=== PATIENT | male | born 1960 | race Caucasian/White ===

== ENCOUNTER 2017-07-07 15:35 | Inpatient (IN) ==
[2017-07-07] MEDS ORDERED: 0.9 % Sodium Chloride 1,000 ML IVC ONE ×2 (15:51→16:45)
[2017-07-07] MEDS ORDERED: Aspirin 325 MG TABLET PO ONE (15:51)
--- NOTE | 2017-07-07 16:04 | Emergency Department Note ---
Disposition Clinical Impression: Atrial fibrillation with RVR, Pre-syncope, Acute kidney injury, Chest tightness or pressure Disposition: Admitted As Inpatient Condition: Fair Time of Disposition: 17:51 Arrhythmia/Palpitations HPI - General Chief Complaint: ED Arrhythmia/Palpitations Stated Complaint: SOB Time Seen by Provider: 07/07/17 15:50 Source: EMS Limitations: no limitations Nursing Notes Reviewed: Yes Vital Signs Reviewed: Yes - History of Present Illness HPI Narrative: 57-year-old male complains of chest pain, shortness of breath, and dyspnea on exertion. Patient states he has been feeling ill secondary to having the flu for the past week. Patient states yesterday symptoms started to worsen with episodes of near syncope which continued to early this morning. Today patient complains of severe dyspnea on exertion while going upstairs and had to stop to catch his breath. The first time this happened he was trying to go up 2 flights of stairs and became short of breath after 1 flight. He caught his breath and tried to make it up the second flight of stairs, but his symptoms worsened so he stopped and walked back down stairs and called for an ambulance. - Related Data Home Medications Medication Instructions Recorded Confirmed No Known Home Drugs 07/07/17 07/07/17 Allergies Allergy/AdvReac Type Severity Reaction Status Date / Time No Known Allergies Allergy Verified 07/07/17 16:35 All systems ED: reviewed and negative except as stated. Review of Systems: As Per HPI Constitutional: Denies: fever, chills, weakness Eyes: Reports: vision change (Blurry vision) Cardiovascular: Reports: chest pain, palpitations Respiratory: Reports: cough, dyspnea. Denies: wheezes Gastrointestinal: Denies: abdominal pain, nausea, vomiting, diarrhea Genitourinary: Denies: urgency, dysuria Musculoskeletal: Denies: back pain Past Medical History - Past Medical History Attestation: Yes The following information was validated with the patient. Source: patient, nursing notes reviewed Medical history: Reports: atrial fibrillation Psychiatric history: Reports: anxiety - Social History Smoking Status: Never smoker Smokeless Tobacco Status: No Alcohol use: Reports: occasionally Drug use: Reports: none Physical Exam Vital Signs Temperature 98.9 F 07/07/17 15:36 Pulse Rate 160 07/07/17 15:36 Respiratory Rate 22 07/07/17 15:36 Blood Pressure 123/92 07/07/17 15:36 O2 Sat by Pulse Oximetry 97 07/07/17 15:36 Temperature 98.9 F 07/07/17 15:36 Pulse Rate 164 07/07/17 16:06 Respiratory Rate 16 07/07/17 16:06 Blood Pressure 107/76 07/07/17 16:06 O2 Sat by Pulse Oximetry 99 07/07/17 16:06 Oxygen Delivery Oxygen Delivery Nasal Cannula 57-year-old male who is alert and oriented 3 and appears to be in some distress secondary to chest discomfort. Patient is nontoxic but patient is slightly diaphoretic. Patient heart rate shows pulse of 160. EKG shows A. fib RVR at 169 minute patient has a blood pressure 123/92 and is tachypneic at 22 breaths per minute. - General Limitations: no limitations General appearance: alert, in no apparent distress - Head Head exam: atraumatic, normocephalic, normal inspection - Eye Eye exam: Present: normal appearance, PERRL, EOMI - ENT ENT exam: normal exam, normal oropharynx, mucous membranes moist - Neck Neck exam: Present: normal inspection, full ROM, trachea midline - Chest Chest inspection: Present: normal inspection, symmetric chest wall rise - Respiratory Respiratory exam: Present: normal lung sounds bilaterally - Cardiovascular Cardiovascular exam: Present: tachycardia, irregular rhythm (Irregularly irregular heart rhythm upon auscultation with corresponding palpation of radial pulse) - Abdominal Exam Abdominal exam: Present: soft, Non-Tender. Absent: tenderness, distention, guarding, rebound, rigidity - Extremities Exam Extremities exam: Present: normal inspection, full ROM. Absent: tenderness, pedal edema - Back Exam Back exam: Present: normal inspection, full ROM. Absent: tenderness, CVA tenderness (R), CVA tenderness (L) - Neurological Exam Neurological exam: Present: alert, oriented X3 - Skin Skin exam: Present: warm, dry, intact, normal color, diaphoresis Course Vital Signs Temperature 98.9 F 07/07/17 15:36 Pulse Rate 160 07/07/17 15:36 Respiratory Rate 22 07/07/17 15:36 Blood Pressure 123/92 07/07/17 15:36 O2 Sat by Pulse Oximetry 97 07/07/17 15:36 Temperature 98.2 F 07/07/17 18:58 Pulse Rate 109 07/07/17 18:58 Respiratory Rate 17 07/07/17 18:58 Blood Pressure 115/85 07/07/17 18:58 O2 Sat by Pulse Oximetry 98 07/07/17 17:55 Oxygen Delivery Oxygen Delivery Nasal Cannula Arrhythmia/Palpitations - MDM Narrative Medical decision making narrative: Differential diagnosis: A. fib RVR with chest pain also concerning for possible ACS/OR. Labs ordered to include CBC, BMP, TSH, calcium and magnesium levels. Plan is for rate control with diltiazem 20 mg bolus followed by diltiazem drip at 5 mg per hour after patient received calcium gluconate, and 1 L of IV normal saline to prevent hypotension. 1705 hrs.: First dose of diltiazem at 10 mg given. Patient tolerated well and patient's rate dropped down between 115 bpm and 135 beats minute. Patient states his level of discomfort is improving. The pressure in his chest is now gone, but his heart rate still needs to come down some more 1727 hrs.:Patient given another dose this time 5 mg with minimal improvement. Patient's blood pressure is tolerating treatment and was given the last 5 mg to make a total of 20 mg bolus. Patient will have the drip started now. Patient' s heart rate currently around 109 bpm. Patient is ready for admission. Patient has already accepted this decision for admission. Patient was accepted for admission by Dr. Aguila the hospitalist - Lab Data Lab results reviewed: Yes I reviewed the patient's lab results. Lab results narrative: Short CBC 07/07/17 Range/Units 16:13 WBC 13.5 H (4.3-11.1) K/mcL Hgb 13.8 (12.9-16.9) g/dL Hct 40.4 (37.5-50.1) % Plt Count 216 (140-400) K/mcL Neutrophils # 9.4 H (1.6-8.9) K/mcL BMP 07/07/17 Range/Units 16:13 Sodium 136 (136-145) mEq/L Potassium 3.8 (3.5-5.1) mEq/L Chloride 106 (98-107) mEq/L Carbon Dioxide 24 (23-29) mEq/L BUN 19 (6-20) mg/dL Creatinine 1.39 H (0.70-1.30) mg/dL Glucose 84 (70-105) mg/dL Calcium 7.9 L (8.6-10.3) mg/dL Cardiac Enzymes 07/07/17 Range/Units 16:13 Troponin I < 0.03 (< 0.04) ng/mL Result diagrams: 07/07/17 16:13 07/07/17 16:13 Lab Results 07/07/17 07/07/17 07/07/17 Range/Units 16:13 16:13 16:13 WBC 13.5 H (4.3-11.1) K/mcL RBC 4.75 (4.19-5.50) M/mcL Hgb 13.8 (12.9-16.9) g/dL Hct 40.4 (37.5-50.1) % MCV 85.1 (83.0-100.0) fL MCH 29.1 (28.0-33.3) pg MCHC 34.2 (31.6-35.5) g/dL RDW 16.8 H (11.5-14.5) % Plt Count 216 (140-400) K/mcL MPV 11.1 (9.4-12.4) fL Immature Gran % 1.0 (0-4) % Seg Neutrophils % 69.8 % Lymphocytes % 15.9 % Monocytes % 12.8 % Eosinophils % 0.1 % Basophils % 0.4 % Neutrophils # 9.4 H (1.6-8.9) K/mcL Lymphocytes # 2.1 (0.6-4.6) K/mcL Monocytes # 1.7 H (0.0-1.3) K/mcL Eosinophils # 0.0 (0.0-0.6) K/mcL Basophils # 0.1 (0.0-0.2) K/mcL PT 12.7 H (9.4-12.1) Seconds INR 1.2 APTT 27.2 (26.0-36.0) Seconds Sodium 136 (136-145) mEq/L Potassium 3.8 (3.5-5.1) mEq/L Chloride 106 (98-107) mEq/L Carbon Dioxide 24 (23-29) mEq/L BUN 19 (6-20) mg/dL Creatinine 1.39 H (0.70-1.30) mg/dL Est GFR ( Amer) > 60 (> 60) Est GFR (Non-Af Amer) 53 L (> 60) BUN/Creatinine Ratio 14 (6-26) Glucose 84 (70-105) mg/dL Calculated Osmolality 283 (280-300) Calcium 7.9 L (8.6-10.3) mg/dL Magnesium 2.0 (1.6-2.6) mg/dL Troponin I (< 0.04) ng/mL TSH 1.076 (0.340-5.600) mcIU/mL Urine Color (Yellow) Urine Clarity (Clear) Urine pH (5.0-8.0) pH Units Ur Specific [place] (1.010-1.025) Urine Protein (Neg-Trace) mg/dL Urine Glucose (UA) (Normal) mg/dL Urine Ketones (Negative) mg/dL Urine Blood (Negative) Urine Nitrite (Negative) Urine Bilirubin (Negative) Urine Urobilinogen (Normal) mg/dL Ur Leukocyte Esterase (Negative) 07/07/17 07/07/17 Range/Units 16:13 17:53 WBC (4.3-11.1) K/mcL RBC (4.19-5.50) M/mcL Hgb (12.9-16.9) g/dL Hct (37.5-50.1) % MCV (83.0-100.0) fL MCH (28.0-33.3) pg MCHC (31.6-35.5) g/dL RDW (11.5-14.5) % Plt Count (140-400) K/mcL MPV (9.4-12.4) fL Immature Gran % (0-4) % Seg Neutrophils % % Lymphocytes % % Monocytes % % Eosinophils % % Basophils % % Neutrophils # (1.6-8.9) K/mcL Lymphocytes # (0.6-4.6) K/mcL Monocytes # (0.0-1.3) K/mcL Eosinophils # (0.0-0.6) K/mcL Basophils # (0.0-0.2) K/mcL PT (9.4-12.1) Seconds INR APTT (26.0-36.0) Seconds Sodium (136-145) mEq/L Potassium (3.5-5.1) mEq/L Chloride (98-107) mEq/L Carbon Dioxide (23-29) mEq/L BUN (6-20) mg/dL Creatinine (0.70-1.30) mg/dL Est GFR ( Amer) (> 60) Est GFR (Non-Af Amer) (> 60) BUN/Creatinine Ratio (6-26) Glucose (70-105) mg/dL Calculated Osmolality (280-300) Calcium (8.6-10.3) mg/dL Magnesium (1.6-2.6) mg/dL Troponin I < 0.03 (< 0.04) ng/mL TSH (0.340-5.600) mcIU/mL Urine Color Dark Yellow (Yellow) Urine Clarity Clear (Clear) Urine pH 6.0 (5.0-8.0) pH Units Ur Specific [place] 1.013 (1.010-1.025) Urine Protein Negative (Neg-Trace) mg/dL Urine Glucose (UA) Normal (Normal) mg/dL Urine Ketones Negative (Negative) mg/dL Urine Blood Negative (Negative) Urine Nitrite Negative (Negative) Urine Bilirubin Negative (Negative) Urine Urobilinogen >=8.0 H (Normal) mg/dL Ur Leukocyte Esterase Negative (Negative) - Radiology Data Radiology results reviewed: Yes I reviewed the patient's radiology results. Chest X-Ray 07/07/17 15:51 IMPRESSION: No acute process. D/ / Frederick Norris MD / Frederick Norris MD Interpreting Provider: Frederick Norris MD - EKG Data EKG attestation: Yes I reviewed and interpreted this EKG. EKG results narrative: Rhythm strip from EMS shows 12-lead with A. fib at a heart rate of 1 56 bpm taken at 1519 hrs. EKG taken 07/07/2016 at 1540 hrs. shows A. fib RVR at a rate of 1 69 bpm with no signs of ST elevation or depression any leads. Previous EKG for comparison taken 12/22/2002 shows a sinus bradycardia at a rate of 55 beats a minute
--- NOTE | 2017-07-07 16:08 | Emergency Department Note ---
START Narrative - START START: I examined this patient and my medical decision-making was reviewed with the emergency medicine resident. I agree with the documented findings, disposition and treatment plan as described except to the extent set forth below. Patient seen with emergency medicine resident Dr. Mathew Duenas, Please see a copy of his note for details of the H&P, ED evaluation, management and disposition. I have independently evaluated the patient and confirmed appropriate portions of the history and physical exam. Briefly: A 57-year-old male by EMS shortness of breath and palpitations. EKG and monitor confirmed he is in atrial fibrillation with rapid ventricular response in the 170s. Systolic slightly low 109. He said he has had this in the past he was on blood thinners but is not on any medicine and not on a rate control medicine. Since last night not getting better in fact getting worse. Patient has no bibasal rales and mild pedal edema. Patient chemically cardioverted with IV fluid noted in calcium repletion. Providing 35 minutes critical care services to this patient labs and admission disposition pending
[2017-07-07 16:46] LABS: Basophils # 0.1 K/mcL (0.0-0.2); Basophils % 0.4 %; Eosinophils % 0.1 %; Hematocrit 40.4 % (37.5-50.1); Hemoglobin 13.8 g/dL (12.9-16.9); Lymphocytes # 2.1 K/mcL (0.6-4.6); Lymphocytes % 15.9 %; Mean Corpuscular HGB Conc 34.2 g/dL (31.6-35.5); Mean Corpuscular Hemoglobin 29.1 pg (28.0-33.3); Mean Corpuscular Volume 85.1 fL (83.0-100.0); Mean Platelet Volume 11.1 fL (9.4-12.4); Monocytes # 1.7 K/mcL (0.0-1.3); Monocytes % 12.8 %; Neutrophils # 9.4 K/mcL (1.6-8.9); Platelet Count 216 K/mcL (140-400); Red Blood Count 4.75 M/mcL (4.19-5.50); Red Cell Distribution Width 16.8 % (11.5-14.5); Segmented Neutrophils % 69.8 %
[2017-07-07 16:53] LABS: INR 1.2; Prothrombin Time 12.7 Seconds (9.4-12.1)
[2017-07-07 16:56] LABS: Activated Partial Thrombo Time 27.2 Seconds (26.0-36.0)
[2017-07-07 16:57] LABS: BUN/Creatinine Ratio 14 (6-26); Blood Urea Nitrogen 19 mg/dL (6-20); Calcium 7.9 mg/dL (8.6-10.3); Carbon Dioxide 24 mEq/L (23-29); Chloride 106 mEq/L (98-107); Glucose 84 mg/dL (70-105); Osmolality,Calculated 283 (280-300); Potassium 3.8 mEq/L (3.5-5.1); Sodium 136 mEq/L (136-145); eGFR For African Americans > 60 (> 60); eGFR For Non-African Americans 53 (> 60)
[2017-07-07 17:13] LABS: Thyroid Stimulating Hormone 1.076 mcIU/mL (0.340-5.600)
[2017-07-07 18:05] LABS: Bilirubin,Urine Negative (Negative); Blood,Urine Negative (Negative); Clarity,Urine Clear (Clear); Color,Urine Dark Yellow (Yellow); Glucose,Urine (UA) Normal (Normal); Ketones,Urine Negative (Negative); Leukocyte Esterase,Urine Negative (Negative); Nitrite,Urine Negative (Negative); Protein,Urine Negative (Neg-Trace); Specific Gravity,Urine 1.013 (1.010-1.025); Urobilinogen,Urine >=8.0 mg/dL (Normal)
[2017-07-07] MEDS ORDERED: Acetaminophen 325 MG TABLET PO PRN (19:22)
[2017-07-07] MEDS ORDERED: Ondansetron 4 MG/2 ML VIAL IVP PRN (19:22)
[2017-07-07] MEDS ORDERED: Naloxone 0.4 MG/ML INJ IVP PRN (19:22)
[2017-07-07] MEDS ORDERED: 0.9 % Sodium Chloride 1,000 ML IVC SCH (19:30)
--- NOTE | 2017-07-07 20:01 | Internal Med History&Physical ---
Date of Encounter: 07/07/17 Time of Encounter: 19:55 Assessment and Plan (1) Atrial fibrillation with RVR Current visit: Yes Status: Acute Patient is experiencing lightheadedness and near syncope shortness of breath on exertion chest pain. He was found to be in A. fib RVR 160. He does have a past history of A. fib 8 years ago he was taken off his medication per his chief sustainability officer. He has been experiencing episodes of dyspnea off and on for past 3 months. Patient was given fluid bolus and initiated on Cardizem drip. Presently rate is improving down to 120s We will initiate on Lovenox 1 mg/kg We will obtain cardiac echo Consult cardiology (2) Acute kidney injury Current visit: Yes Status: Acute Presently patient's creatinine is 1.39 unsure of baseline suspect this is prerenal related to hypoperfusion. Patient has been ill with poor oral intake taking ibuprofen as well as has been in and out of atrial fibrillation we will give IV fluids overnight and recheck creatinine in a.m. We will avoid nephrotoxins Monitor intake output daily weights (3) DVT prophylaxis Current visit: Yes Status: Acute Lovenox subcutaneous Internal Medicine - H&P: HPI Chief complaint: CP Admitted From: Emergency Dept Plans for Post Hospital Care: Home History of present illness: Mr. Jeong is a 57 year old male past medical history of atrial fibrillation. According to the patient last week he was feeling ill, he thought he had the flu experiencing chills upper respiratory symptoms and diarrhea. He was taking [id number] TheraFlu as well as Zicam. Poor oral intake during the week. Yesterday patient began to experience episodes of lightheadedness and near syncope episode which continued to early this morning. Today he was having dyspnea while going up and down the stairs it would improve with rest. This continued throughout the day until proximal 1:00 we tentatively go up the stairs and he began to experience chest pain nausea diaphoresis and shortness of breath. He walked back down the stairs and called 911. Patient was found to be in A. fib RVR with heart rate 160 he was transported to the ER. Patient does have a past history of atrial fibrillation he said that approximate 8 years ago his chief sustainability officer took him off his medications he is not on any anticoagulation. His family reports that he has been experiencing episodes of dyspnea off and on over the past 3 months. According to ER record patient presented in A. fib RVR. Her was obtained which did show elevated creatinine chest x-ray with no acute process he was given IV fluid. He was given bolus of Cardizem and initiated on Cardizem drip. Heart rate did improve he was admitted for further workup and evaluation. Presently patient's heart rate is 130 A. fib increased Cardizem to 10 mg an hour. He denies any chest pain or shortness of breath at this time I did review this case with Dr. Fox who agrees with plan. Past Med Surg Social Fam HX - Past Medical History Medical history: atrial fibrillation Psychiatric history: anxiety - Social History Smoking Status: Never smoker Smokeless Tobacco Status: No Alcohol use: occasionally Drug use: none - Family History Mother Living Status: Cause of : cancer Internal Medicine - H&P: Meds No Known Home Drugs 07/07/17 [History] 3 Allergy/AdvReac Type Severity Reaction Status Date / Time No Known Allergies Allergy Verified 07/07/17 16:35 All Systems PM: A 10-system review of systems was performed and is negative for pertinent findings except as documented above in the HPI. - Constitutional Constitutional: excessive sweating, fever(s), no chills, no night sweats - EENT Eyes: no change in vision, no discharge, no pain, no photophobia Nose, mouth and throat: no dysphagia, no nasal discharge, no neck pain, no sore throat - Cardiovascular Cardiovascular ROS IM: chest pain, diaphoresis, dyspnea, lightheadedness, no palpitations, no syncope - Respiratory Respiratory: no cough, no dyspnea, no wheezing, no excessive phlegm production - Gastrointestinal Gastrointestinal: no abdominal pain, no diarrhea, no hematemesis, no hematochezia, no melena, no nausea, no vomiting - Musculoskeletal Musculoskeletal ROS IM: no numbness, no tingling - Integumentary Integumentary IM: no rash, no unusual bruising - Neurological Neurological ROS: no confusion, no convulsions, no focal weakness, no numbness, no tingling, no tremor(s) - Hematologic/Lymphatic Hematologic/Lymphatic: no easy bruising - Constitutional Vitals: Temp Pulse Resp BP Pulse Ox 98.2 F 109 17 115/85 98 07/07/17 18:58 01/22/18 18:58 07/07/17 18:58 07/07/17 18:58 07/07/17 17:55 General appearance: Present: A&O X 3 - Head Head exam: Present: atraumatic, normocephalic - Eye Eye exam: Present: PERRL, conjuntiva pink, sclera anicteric Pupils: Present: PERRL - Neck Neck exam general surgery: Present: supple, trachea midline. Absent: lymphadenopathy - Respiratory Respiratory exam: Present: CTAB. Absent: accessory muscle use, rales, rhonchi, wheezes - Cardiovascular Cardiovascular exam: Present: RRR, +S1, +S2. Absent: diastolic murmur, gallop, rubs, systolic murmur - GI/Abdominal GI/Abdominal exam: Present: normal bowel sounds, soft, no peritoneal signs. Absent: distended, tenderness - Extremities Exam Extremities exam: Present: warm, radial pulses palpable and symmetrical. Absent : calf tenderness, cyanotic, pedal edema - Neurological Exam Neurological exam: Present: CN II-XII intact, oriented X3, no focal deficits. Absent: pronater drift, facial droop, speech deficit - Skin Skin exam: Present: dry, intact Internal Med - H&P Results - Labs CBC & Chem 7: 07/07/17 16:13 07/07/17 16:13 Labs: Urine 07/07/17 Range/Units 17:53 Urine Color Dark Yellow (Yellow) Urine Clarity Clear (Clear) Urine pH 6.0 (5.0-8.0) pH Units Ur Specific [place] 1.013 (1.010-1.025) Urine Protein Negative (Neg-Trace) mg/dL Urine Glucose (UA) Normal (Normal) mg/dL - EKG Data EKG comments: 07/07/17 20:15 Atrial fibrillation with RVR - Diagnostic Studies Other Images Additional comments: Chest X-Ray 07/07/17 15:51 IMPRESSION: No acute process. D/ / Frederick Norris MD / Frederick Norris MD Interpreting Provider: Frederick Norris MD
[2017-07-07] MEDS: *HR* Enoxaparin 100 MG/ML SYRINGE SQ SCH (21:01)
[2017-07-08 04:46] LABS: Basophils # 0.1 K/mcL (0.0-0.2); Basophils % 0.7 %; Eosinophils % 0.5 %; Hematocrit 35.8 % (37.5-50.1); Hemoglobin 12.5 g/dL (12.9-16.9); Immature Granulocytes % 1.2 % (0-4); Lymphocytes # 2.6 K/mcL (0.6-4.6); Lymphocytes % 34.4 %; Mean Corpuscular HGB Conc 34.9 g/dL (31.6-35.5); Mean Corpuscular Hemoglobin 29.4 pg (28.0-33.3); Mean Corpuscular Volume 84.2 fL (83.0-100.0); Mean Platelet Volume 11.5 fL (9.4-12.4); Monocytes # 0.9 K/mcL (0.0-1.3); Monocytes % 12.1 %; Neutrophils # 3.9 K/mcL (1.6-8.9); Platelet Count 173 K/mcL (140-400); Red Blood Count 4.25 M/mcL (4.19-5.50); Red Cell Distribution Width 17.1 % (11.5-14.5); Segmented Neutrophils % 51.1 %
[2017-07-08 05:06] LABS: BUN/Creatinine Ratio 15 (6-26); Blood Urea Nitrogen 16 mg/dL (6-20); Calcium 7.6 mg/dL (8.6-10.3); Carbon Dioxide 23 mEq/L (23-29); Chloride 112 mEq/L (98-107); Chol/HDL Ratio 4.2 (0-4.9); Cholesterol 84 mg/dL (< 200); Glucose 96 mg/dL (70-105); HDL Cholesterol 20 mg/dL (40-59); LDL Cholesterol,Calculated 51 mg/dL (0-99); Osmolality,Calculated 289 (280-300); Potassium 3.8 mEq/L (3.5-5.1); Sodium 139 mEq/L (136-145); Triglycerides 67 mg/dL (< 150); eGFR For African Americans > 60 (> 60); eGFR For Non-African Americans > 60 (> 60)
[2017-07-08 05:15] LABS: Anisocytosis 1+ (Not Present); Platelet Estimate Normal (Normal); Reactive Lymphocytes Present (Not Present)
[2017-07-08 05:16] LABS: Microcytosis Present (Not Present)
[2017-07-08] MEDS: *HR* Enoxaparin 100 MG/ML SYRINGE SQ SCH ×2 (07:01→17:33)
--- NOTE | 2017-07-08 08:18 | Cardiology Consult Note ---
<OsorioEstefany - Last Filed: 07/08/17 12:17> Date of Encounter: 07/08/17 Time of Encounter: 08:08 Assessment and Plan (1) Atrial fibrillation with RVR Current Visit: Yes Status: Acute Patient with lightheadeness, near syncope, and dyspnea during exertion. ECG on a fib with RVR. -Fluid bolus and cardizem bolus with drip decreased patient's rate, 98 this morning. -Patient receiving lovenox for anticoagulation. 07/08/2017--Echocardiogram on 07/08/2017 LVEF 60%, indeterminate diastolic function, normal RV structure and function, mild mitral regurg, mild tricuspid regurg, no pulmonary HTN. -Lipid panel HDL 20. Recommend lifestyle changes and dietary modifications. -start diltizaem 60mg q8 once able to wean off cardizem drip, HR less than 100. -Nuclear exercise stress testing tomorrow, NPO -Thyroid function normal, no history of uncontrolled HTN. -Per patient and patient's daughter at bedside, patient with history of snoring. Recommend sleep study as an outpatient. (2) Pre-syncope Current Visit: Yes Status: Acute Likely related to fluid status as patient reports 1 week history of decreased PO in the setting of suspected flu. -Creatinine improving from 1.39 on admission to 1.07 this AM suggesting dehydration. -Will continue to monitor clinically for improvement of symptoms with fluid resuscitation. Discussion w patient/family: The assessment and plan as outlined above was discussed with the patient and/or family members who expressed understanding and agreement. All questions were answered. Thank you for involving us in the care of your patient. Please call with any questions. History of Present Illness Consult date: 07/07/17 Requesting physician: Jessica Hightower Consult reason: Afib with RVR Chief complaint: Dyspnea/Palpitations History of present illness: Mr. Jeong is a 57 year old male with PMHx of atrial fibrillation. Patient presented to [facility] on 07/07/2017 after a one week history of feeling ill which included chills, upper respiratory symptoms, and diarrhea. Patient had been taking theraflu and zicam as he thought he had the flu. He reported poor fluid intake. One day prior to admission, the patient stated he felt lightheaded with an episode of near syncope. He stated he had dyspnea during activity which resolved during rest. At approximately 1pm of the day of admission, he had an episode of chest pain with associated nausea, diaphoresis, and shortness of breath during exertion. Patient subsequently called EMS. At the ED, patient had an ECG that showed atrial fibrillation with RVR with HR 160. Troponins were negative in the ED x's3. Other labs obtained revealed an elevated creatinine 1.39. CXR showed no acute process. Interventions undertaken in the ED included a fluid bolus for suspected pre-renal kidney injury as well as a bolus of cardizem with initiation of cardizem drip. Heart rate improved. Additionally, Patient's family reported that the patient had been having episodes of shortness of breath for the last 3 months. Patient does state that he was diagnosed with A.fib 8 years ago, although his e commerce web developer took him off of his medications including anticoagulation. He was followed by Dr. Luis Manuel Wilson at [facility]. He denies [facility], but is unclear. He does remember undergoing stress testing with some other form of imaging. Past Med Surg Social Fam HX - Past Medical History Attestation: Yes The following information was validated with the patient. Source: patient Medical history: atrial fibrillation Psychiatric history: anxiety - Social History Smoking Status: Never smoker Smokeless Tobacco Status: No Alcohol use: occasionally Drug use: none - Family History Mother Living Status: Cause of : cancer Medications and Allergies Rivaroxaban [Xarelto] 20 mg PO DAILY #30 tablet 07/08/17 [Rx] 3 Allergy/AdvReac Type Severity Reaction Status Date / Time No Known Allergies Allergy Verified 07/07/17 16:35 All Systems Review: A 10-system review of systems was performed and is negative for pertinent findings except as documented above in the HPI. - Constitutional Constitutional: chills, no fatigue, no stops breathing during sleep, no weight gain, no weight loss - Cardiovascular Cardiovascular: dyspnea on exertion, irregular heart rhythm, lightheadedness, rapid heart rate, no radiating jaw, neck or arm pain - Respiratory Respiratory: cough - Gastrointestinal Gastrointestinal: diarrhea, no abdominal pain, no constipation, no hematemesis, no hematochezia, no melena - Genitourinary Genitourinary: no dysuria - Musculoskeletal Musculoskeletal: no abnormal gait - Neurological Neurological: no abnormal speech, no dizziness Physical Examination Vital Signs, Last 4 Hours Temp Pulse Resp BP Pulse Ox 07/08/17 07:18 97.8 F 98 18 125/89 96 07/08/17 04:33 98.1 F 98 15 126/89 93 General: Conversant, No Apparent Distress HEENT: Atraumatic, Normocephaly, Mucus Membranes Moist Neck: No JVD, Normal carotid pulses Cardiac: Reg Rate and Rhythm, Normal S1 and S2 Lungs: Normal Breath Sounds, No Wheeze, Rales, Rhonchi Neuro: Alert and responsive, No focal deficits noted Abdomen: Soft, Non-Tender Skin: No rashes noted on visualized skin Musculoskeletal: No Chest Wall Tenderness Extremities: No Clubbing, No Cyanosis, No Edema Results 07/08/17 03:50 07/08/17 03:50 Lab Results 07/07/17 07/08/17 07/08/17 21:46 03:50 03:50 WBC 7.6 Hgb 12.5 L Hct 35.8 L Plt Count 173 Sodium 139 Potassium 3.8 Chloride 112 H Carbon Dioxide 23 BUN 16 Creatinine 1.07 Glucose 96 Calcium 7.6 L Magnesium 2.0 Troponin I < 0.03 07/08/17 03:50 WBC Hgb Hct Plt Count Sodium Potassium Chloride Carbon Dioxide BUN Creatinine Glucose Calcium Magnesium Troponin I < 0.03 Consult Discharge Plan - Plan Referrals: Shannan Meza, SALVAGE ENGINEER [Primary Care Provider] - Prescriptions: Rivaroxaban [Xarelto] 20 mg PO DAILY #30 tablet <Luis Alberto Otoole - Last Filed: 07/08/17 19:22> Date of Encounter: 07/08/17 - Attending Attestation I examined this patient and my medical decision-making was reviewed with the Resident Physician. I agree with the documented findings, disposition and treatment plan as described except to the extent set forth below. CC: Near syncope, fever, chills, chest pain. Pt reports four day history of nausea, cough, fever and chills, and diarrhea. Pt reports was started on theraflu and zicam. He also reports one episode of precordial chest pain, occurred at rest, worsened with activity, associated with nausea, diaphoresis and shortness of breath. Chest pain 6/10 at most severe, lasted approximately fifteen minutes, pt called squad, chest pain improved in route to [facility]. Pt reports he has not had further chest pain. Pt had initial EKG in ER, revealed a fib with RVR, rate response up to 170 bpm, . Heart rate improved on nasal O2, and fluid bolus in ER. Pt reports had an episode of a fib approximately 8 years ago, was followed by cardiology for several years, but has not had recent evaluation. Pt and family reports he was not taking any cardiac medications at home. He reports is currently comfortable, denies chest pain, reports shortness of breath has improved. PE: Alert x 2, pt is easily confused, hx supplemented by and daughter at bedside. HEENT: no carotid bruits, neck supple Heart irregularly irregular, no murmurs Lungs; decreased breath sounds, scattered rhonchi, do not clear with cough Abdomen soft, flat bowel sounds decreased , non tender, no pulsitile mass Ext: bilat 2+ pretibial edema. Nuero: CN 2 - 12 grossly intact, no focal deficits. IMP: 1. Paroxysmal A fib, now persistent on medical tx, likely provoked by dehydration, influenza symptoms, ventricular response rates controlled on IV diltiazem, rehydration, on systemic anticoagulation with lovenox. Will switch to PO diltiazem, review echo when available. 2. Pre-syncope, appears due to dehydration, much less symptomatic with rehydration 3. Influenza, responding to supportive care 4. Chest pain - atypical, order nuclear stress imaging in AM. Assessment and Plan Discussion w patient/family: The assessment and plan as outlined above was discussed with the patient and/or family members who expressed understanding and agreement. All questions were answered. Thank you for involving us in the care of your patient. Please call with any questions. History of Present Illness History of present illness: Mr. Jeong is a 57 year old male All Systems Review: A 10-system review of systems was performed and is negative for pertinent findings except as documented above in the HPI. Physical Examination Vital Signs, Last 4 Hours Temp Pulse Resp BP Pulse Ox 07/08/17 15:35 98.9 F 98 18 111/79 94 Results 07/08/17 03:50 07/08/17 03:50 Lab Results 07/07/17 07/08/17 07/08/17 21:46 03:50 03:50 WBC 7.6 Hgb 12.5 L Hct 35.8 L Plt Count 173 Sodium 139 Potassium 3.8 Chloride 112 H Carbon Dioxide 23 BUN 16 Creatinine 1.07 Glucose 96 Calcium 7.6 L Magnesium 2.0 Troponin I < 0.03 07/08/17 03:50 WBC Hgb Hct Plt Count Sodium Potassium Chloride Carbon Dioxide BUN Creatinine Glucose Calcium Magnesium Troponin I < 0.03
[2017-07-08] MEDS: Aspirin 81 MG TAB.CHEW PO SCH (10:17)
--- NOTE | 2017-07-08 14:45 | Internal Med Progress Note ---
<Santino Pro - Last Filed: 07/08/17 14:56> Date of Encounter: 07/08/17 Time of Encounter: 08:00 - Assessment and plan (1) Atrial fibrillation with RVR Current Visit: Yes Status: Acute Assessment and plan: Patient was admitted with atrial fibrillation with rapid ventricular rate. Previous history of atrial fibrillation but was not compliant with medications nor follow-up on this condition. Denies any acute events or seeking medical treatment for atrial fibrillation last 8 years. - Currently tolerating Cardizem drip, heart rate between 100-110 OF NOTE MR. CHIN WAS PREVIOUSLY TAKING SOTALOL BEFORE DISCONTINUING ON HIS OWN WILL DISCUSS WITH CARDIOLOGY. - Currently on therapeutic dosing of heparin subcutaneous twice a day - Discussed anticoagulation and will check into [facility] for pricing - Cardiology following appreciate recommendations. (2) Acute kidney injury Current Visit: Yes Status: Acute Assessment and plan: Patient presented with mild acute kidney injury. This has since resolved after fluid rehydration. Conjunctivae factors as patient had a viral upper respiratory infection over the past several days with decreased oral intake. - We will continue to monitor and avoid nephrotoxic medications and renally dose antibiotics. - Continue to monitor inpatient. (3) Chest tightness or pressure Current Visit: Yes Status: Acute Assessment and plan: Patient complains of an odd feeling in his chest, with his current uncontrolled A-fib on current therapy. Wells score 1.5 Plan: - CTA chest - Continue Heparin (4) DVT prophylaxis Current Visit: Yes Status: Acute Assessment and plan: Lovenox weight based. - Subjective Interval history: Mr. Chin has been seen and evaluated at patient bedside this morning. He is alert awake interactive no acute distress. He states that he had atrial fibrillation 8 years ago but was not compliant with his warfarin so they stopped prescribing him this medication. He did not feel he had atrial fibrillation and had not seek medical attention for this condition since. Over the past few weeks he has been noticing coughing and shortness of breath and early fatigue. He denies any trauma, long car rides or trips, injuries or recent surgeries. He states that the last time he had difficulty with initial control of his atrial fibrillation. He denies any other provoking factors but does have a discomfort in his chest which she just describes as not feeling right. - Constitutional Vitals: Temp Pulse Resp BP Pulse Ox 97.9 F 97 16 134/88 95 07/08/17 11:24 07/08/17 11:24 07/08/17 11:24 07/08/17 11:24 07/08/17 11:24 General appearance: Present: A&O X 3 Exam: General: Patient alert, awake, oriented 3, interactive, in no acute distress HEENT: Normocephalic, atraumatic, pupils equal reactive to light, oral mucosa moist, neck supple trachea midline no palpable lymphadenopathy, no thyromegaly. Chest: Symmetric bilateral correlating with respiratory effort, effort nonlabored. Cardiac: Irregularly irregular heart rate and rhythm no bruits appreciated bilateral carotids, Radial pulses 2+ bilateral, posterior tibial and dorsal pedal pulses 2+ bilateral. Respiratory: Clear to auscultation all lung calabrese Abdomen: Soft, nontender, positive bowel sounds, no palpable masses appreciated on examination Extremities: Symmetric bilateral, bilateral lower extremities without erythema or edema patient moving all 4 extremities spontaneously. Neurologic: No focal deficits appreciated on examination. Face symmetric, muscle strength symmetric bilateral upper and lower extremities. Internal Medicine: Result - Labs CBC & Chem 7: 07/08/17 03:50 07/08/17 03:50 Labs: Short CBC 07/08/17 Range/Units 03:50 WBC 7.6 (4.3-11.1) K/mcL Hgb 12.5 L (12.9-16.9) g/dL Hct 35.8 L (37.5-50.1) % Plt Count 173 (140-400) K/mcL Neutrophils # 3.9 (1.6-8.9) K/mcL BMP 07/08/17 03:50 Sodium 139 Potassium 3.8 Chloride 112 H Carbon Dioxide 23 BUN 16 Creatinine 1.07 Glucose 96 Calcium 7.6 L Cardiac Enzymes 07/07/17 07/08/17 Range/Units 21:46 03:50 Troponin I < 0.03 < 0.03 (< 0.04) ng/mL - ABG Interpretation ABG results: PT/INR, D-dimer PT 12.7 Seconds (9.4-12.1) H 07/07/17 16:13 - Impressions Impressions Echocardiogram 07/08/17 19:26 Impressions: LVEF 60%. Indeterminate diastolic function. Normal right ventricular structure and function. Mild mitral regurgitation. Mild tricuspid regurgitation. No pulmonary hypertension. Left Ventricular Wall Motion: Rest Echo Findings All wall segments showed normal motion. Findings: Study Quality * Technically challenging due to body habitus. ECG Findings * Atrial fibrillation. Left Ventricle * LVEF 60%. * Normal LV size. * LV wall thickness measurements are not well obtained. * Indeterminate diastolic function. Right Ventricle * Normal right ventricular structure and function. Left Atrium * Normal left atrial size. Right Atrium * Normal right atrial size. Aortic Valve * No aortic regurgitation. * Trileaflet aortic valve. * No aortic stenosis. Mitral Valve * Normal mitral valve structure. * No mitral stenosis. * Mild mitral regurgitation. Tricuspid Valve * Tricuspid valve not well visualized. * Mild tricuspid regurgitation. * Estimated RA pressure is 3 mmHg. * Estimated RVSP is 24 mmHg. * No pulmonary hypertension. Pulmonic Valve * Pulmonic valve is not well visualized. * No pulmonic stenosis. * No pulmonic regurgitation. Pulmonary Artery * Pulmonary artery not well visualized. Aorta * Normally sized aortic root. * Ascending aorta is not well obtained. Pericardium * There is no pericardial effusion present. Interatrial Septum * No evidence of PFO by color Doppler. IVC * Normal IVC dimensions and inspiratory collapse. Consult Discharge Plan - Plan Referrals: Shannan Meza, LOBBY ATTENDANT [Primary Care Provider] - <Manoj Bah - Last Filed: 07/08/17 15:38> Date of Encounter: 07/08/17 - Assessment and plan (1) Atrial fibrillation Current Visit: Yes Status: Acute Qualifiers: Atrial fibrillation type: persistent Qualified Code(s): I48.1 - Persistent atrial fibrillation (2) Chest tightness or pressure Current Visit: Yes Status: Acute (3) Pre-syncope Current Visit: Yes Status: Acute (4) Acute kidney injury Current Visit: Yes Status: Resolved (5) Medical non-compliance Current Visit: Yes Status: Chronic - Constitutional Vitals: Temp Pulse Resp BP Pulse Ox 97.9 F 97 16 134/88 95 07/08/17 11:24 07/08/17 11:24 07/08/17 11:24 07/08/17 11:24 07/08/17 11:24 Internal Medicine: Result - Labs CBC & Chem 7: 07/08/17 03:50 07/08/17 03:50 Labs: Short CBC 01/23/18 Range/Units 03:50 WBC 7.6 (4.3-11.1) K/mcL Hgb 12.5 L (12.9-16.9) g/dL Hct 35.8 L (37.5-50.1) % Plt Count 173 (140-400) K/mcL Neutrophils # 3.9 (1.6-8.9) K/mcL BMP 07/08/17 03:50 Sodium 139 Potassium 3.8 Chloride 112 H Carbon Dioxide 23 BUN 16 Creatinine 1.07 Glucose 96 Calcium 7.6 L Cardiac Enzymes 07/07/17 07/08/17 Range/Units 21:46 03:50 Troponin I < 0.03 < 0.03 (< 0.04) ng/mL - ABG Interpretation ABG results: PT/INR, D-dimer PT 12.7 Seconds (9.4-12.1) H 07/07/17 16:13 - Impressions Impressions Echocardiogram 07/08/17 19:26 Impressions: LVEF 60%. Indeterminate diastolic function. Normal right ventricular structure and function. Mild mitral regurgitation. Mild tricuspid regurgitation. No pulmonary hypertension. Left Ventricular Wall Motion: Rest Echo Findings All wall segments showed normal motion. Findings: Study Quality * Technically challenging due to body habitus. ECG Findings * Atrial fibrillation. Left Ventricle * LVEF 60%. * Normal LV size. * LV wall thickness measurements are not well obtained. * Indeterminate diastolic function. Right Ventricle * Normal right ventricular structure and function. Left Atrium * Normal left atrial size. Right Atrium * Normal right atrial size. Aortic Valve * No aortic regurgitation. * Trileaflet aortic valve. * No aortic stenosis. Mitral Valve * Normal mitral valve structure. * No mitral stenosis. * Mild mitral regurgitation. Tricuspid Valve * Tricuspid valve not well visualized. * Mild tricuspid regurgitation. * Estimated RA pressure is 3 mmHg. * Estimated RVSP is 24 mmHg. * No pulmonary hypertension. Pulmonic Valve * Pulmonic valve is not well visualized. * No pulmonic stenosis. * No pulmonic regurgitation. Pulmonary Artery * Pulmonary artery not well visualized. Aorta * Normally sized aortic root. * Ascending aorta is not well obtained. Pericardium * There is no pericardial effusion present. Interatrial Septum * No evidence of PFO by color Doppler. IVC * Normal IVC dimensions and inspiratory collapse. - Attending Attestation I examined this patient and my medical decision-making was reviewed with the Resident Physician on 07/08/17. I agree with the documented findings, disposition and treatment plan as described except to the extent set forth below. Mr Chin is currently admitted for acute rapid atrial fibrillation. He remains moderate to high risk due to potential for worsening clinical status. Mr Chin is having a lot of chest symptoms. No fever. Does have cough. Is on Cardizem 20mg IV/hour. Initial troponin negative. Exam Alert. Mild distress. Mucus membranes dry Heart tachy and irreg Lungs no wheeze Abd soft Face appears red and puffy. I/P 1. Rapid a fib - on cardizem drip. CTA neg for PE. Check RIP. CT shows bronchiolitis. Start azithromycin. Further diagnoses and plan as above.
[2017-07-08 17:39] LABS: Adenovirus Not Detected (Not Detect); Coronavirus 229E Not Detected (Not Detect); Coronavirus HKU1 Not Detected (Not Detect); Coronavirus NL63 Not Detected (Not Detect); Coronavirus OC43 Not Detected (Not Detect); Human Metapneumovirus Not Detected (Not Detect); Human Rhinovirus/Enterovirus Not Detected (Not Detect)
[2017-07-08 17:40] LABS: Bordetella Pertussis Not Detected (Not Detect); Chlamydophila pneumoniae Not Detected (Not Detect); Influenza A Subtype 2009 H1 Not Detected (Not Detect); Influenza A Untypeable Not Detected (Not Detect); Influenza B Not Detected (Not Detect); Mycoplasma pneumoniae Not Detected (Not Detect); Parainfluenza Virus 1 Not Detected (Not Detect); Parainfluenza Virus 2 Not Detected (Not Detect); Parainfluenza Virus 3 Not Detected (Not Detect); Parainfluenza Virus 4 Not Detected (Not Detect); Respiratory Syncytial Virus Not Detected (Not Detect)
[2017-07-08] MEDS ORDERED: Furosemide 20 MG/2 ML VIAL IVP ONE ×2 (19:43→19:48)
[2017-07-08] MEDS: Melatonin 3 MG TABLET PO PRN (23:41)
[2017-07-09 05:07] LABS: Hematocrit 39.1 % (37.5-50.1); Hemoglobin 13.1 g/dL (12.9-16.9); Mean Corpuscular HGB Conc 33.5 g/dL (31.6-35.5); Mean Corpuscular Hemoglobin 28.8 pg (28.0-33.3); Mean Corpuscular Volume 85.9 fL (83.0-100.0); Mean Platelet Volume 11.2 fL (9.4-12.4); Nucleated Red Blood Cells 0.2 /100 WBC (0); Platelet Count 215 K/mcL (140-400); Red Blood Count 4.55 M/mcL (4.19-5.50); Red Cell Distribution Width 17.2 % (11.5-14.5)
[2017-07-09 05:41] LABS: Alanine Aminotransferase 26 Units/L (7-52); Albumin 3.4 g/dL (3.5-5.7); Albumin/Globulin Ratio 1.1 (1.1-2.2); Alkaline Phosphatase 87 Units/L (34-104); Aspartate Amino Transferase 18 Units/L (13-39); BUN/Creatinine Ratio 14 (6-26); Bilirubin,Total 0.9 mg/dL (0.3-1.0); Blood Urea Nitrogen 16 mg/dL (6-20); Calcium 8.3 mg/dL (8.6-10.3); Carbon Dioxide 23 mEq/L (23-29); Chloride 111 mEq/L (98-107); Globulin 3.2 g/dL (2.4-3.5); Glucose 102 mg/dL (70-105); Osmolality,Calculated 291 (280-300); Potassium 3.6 mEq/L (3.5-5.1); Sodium 140 mEq/L (136-145); Total Protein 6.6 g/dL (6.4-8.9); eGFR For African Americans > 60 (> 60); eGFR For Non-African Americans > 60 (> 60)
[2017-07-09 05:51] LABS: Lymphocytes # 2.9 K/mcL (0.6-4.6); Monocytes # 1.7 K/mcL (0.0-1.3); Neutrophils # 7.4 K/mcL (1.6-8.9); Platelet Estimate Normal (Normal)
[2017-07-09] MEDS ORDERED: Regadenoson 0.4 MG/5 ML SYRINGE IVP ONE (06:16)
[2017-07-09] MEDS: *HR* Enoxaparin 100 MG/ML SYRINGE SQ SCH ×2 (06:31→17:56)
--- NOTE | 2017-07-09 07:57 | Electrocardiograph Report ---
[address] [address] Test Date: 2017-07-07 Pat Name: Migel Jeong Department: 104 Room: 2NE21 Gender: M Outpatient Coordinator: : 1960 Requested By: Mathew Duenas Order Number: [id number] Reading MD: Aleksey Sanchez MD Measurements Intervals [place] Rate: 169 P: PA: 0 QRS: -37 QRSD: 106 T: 30 QT: 266 QTc: 358 Interpretive Statements ATRIAL FIBRILLATION WITH RAPID VENTRICULAR RESPONSE MARKED LEFT AXIS DEVIATION PATTERN CONSISTENT WITH PULMONARY DISEASE INCOMPLETE RIGHT BUNDLE BRANCH BLOCK Electronically Signed On 07-09-2017 7:20:52 EST by Aleksey Sanchez MD
--- NOTE | 2017-07-09 08:23 | Electrocardiograph Report ---
[address] [place] [address] Test Date: 2017-07-08 Pat Name: Migel Jeong Department: 111 Room: 2NE21 Gender: M Ore Puncher: [id number] : 1960 Requested By: Manoj Bah Order Number: [id number] Reading MD: Aleksey Sanchez MD Measurements Intervals [place] Rate: 97 P: HI: 0 QRS: -49 QRSD: 106 T: 27 QT: 364 QTc: 419 Interpretive Statements ATRIAL FIBRILLATION INCOMPLETE RIGHT BUNDLE BRANCH BLOCK LEFT ANTERIOR FASCICULAR BLOCK Electronically Signed On 07-09-2017 8:21:58 EST by Aleksey Sanchez MD
[2017-07-09] MEDS: Aspirin 81 MG TAB.CHEW PO SCH (09:23)
[2017-07-09] MEDS ORDERED: Azithromycin 250 MG TABLET PO ONE ×2 (09:53→12:45)
--- NOTE | 2017-07-09 10:12 | Internal Med Progress Note ---
<Santino Pro - Last Filed: 07/09/17 15:55> Date of Encounter: 07/09/17 Time of Encounter: 10:11 - Assessment and plan (1) Atrial fibrillation with RVR Current Visit: Yes Status: Acute Assessment and plan: Patient was admitted with atrial fibrillation with rapid ventricular rate. Previous history of atrial fibrillation but was not compliant with medications nor follow-up on this condition. Denies any acute events or seeking medical treatment for atrial fibrillation last 8 years. - Currently on Cardizem drip at 20. Obtaining records from [facility] from previous admission. Patient may need adjustment and rate control as he does not appear to be controlled on Cardizem 20. - Currently on therapeutic dosing of heparin subcutaneous twice a day - Plan to start Xarelto for long-term anticoagulation. - Cardiology following appreciate recommendations. (2) Acute kidney injury Current Visit: Yes Status: Resolved Assessment and plan: Patient presented with mild acute kidney injury. This has since resolved after fluid rehydration. Conjunctivae factors as patient had a viral upper respiratory infection over the past several days with decreased oral intake. - We will continue to monitor and avoid nephrotoxic medications and renally dose antibiotics. - Continue to monitor inpatient. (3) Chest tightness or pressure Current Visit: Yes Status: Acute Assessment and plan: Patient's tightness and chest likely secondary to bronchitis and influenza A - Continue Tamiflu - Continue azithromycin by mouth (4) Influenza A Current Visit: Yes Status: Acute Assessment and plan: Influenza A positive through PCR. - day 2 tamiflu (5) DVT prophylaxis Current Visit: Yes Status: Acute Assessment and plan: Lovenox weight based. - Subjective Interval history: Mr. Jeong has been seen and evaluated at patient bedside this morning. He is alert awake interactive no acute distress. He states that he continues to feel that he has puffiness in his face, had an episode of shortness of breath last evening when she had chest x-ray completed but feels that his respiratory status is much improved since then. The fluttering in his chest has ceased a continues to have a productive cough. No other concerns at this time, requesting to be able to sit in a chair today. - Constitutional Vitals: Temp Pulse Resp BP Pulse Ox 98.9 F 85 16 125/92 93 07/09/17 06:39 07/09/17 06:39 07/09/17 06:39 07/09/17 06:39 07/09/17 06:39 General appearance: Present: A&O X 3 - Head Head exam: Present: atraumatic, normocephalic Additional comments: Face has redness and some mild periorbital edema. - Eye Eye exam: Present: PERRL, conjuntiva pink, sclera anicteric Pupils: Present: PERRL - Neck Neck exam general surgery: Present: supple, trachea midline. Absent: lymphadenopathy - Respiratory Respiratory exam: Present: CTAB. Absent: accessory muscle use, rales, rhonchi, wheezes - Cardiovascular Cardiovascular exam: Present: irregular rhythm. Absent: diastolic murmur, gallop, rubs, systolic murmur - GI/Abdominal GI/Abdominal exam: Present: normal bowel sounds, soft, no peritoneal signs. Absent: distended, tenderness - Extremities Exam Extremities exam: Present: warm, radial pulses palpable and symmetrical. Absent : calf tenderness, cyanotic, pedal edema - Neurological Exam Neurological exam: Present: CN II-XII intact, oriented X3, no focal deficits. Absent: pronater drift, facial droop, speech deficit - Skin Skin exam: Present: dry, intact Internal Medicine: Result - Labs CBC & Chem 7: 07/09/17 04:02 07/09/17 04:02 Labs: Short CBC 07/09/17 Range/Units 04:02 WBC 12.0 H D (4.3-11.1) K/mcL Hgb 13.1 (12.9-16.9) g/dL Hct 39.1 (37.5-50.1) % Plt Count 215 (140-400) K/mcL Neutrophils # 7.4 (1.6-8.9) K/mcL BMP 07/09/17 04:02 Sodium 140 Potassium 3.6 Chloride 111 H Carbon Dioxide 23 BUN 16 Creatinine 1.18 Glucose 102 Calcium 8.3 L Liver Function 07/09/17 Range/Units 04:02 Total Bilirubin 0.9 (0.3-1.0) mg/dL AST 18 (13-39) Units/L ALT 26 (7-52) Units/L Alkaline Phosphatase 87 (34-104) Units/L Albumin 3.4 L (3.5-5.7) g/dL - ABG Interpretation ABG results: PT/INR, D-dimer PT 12.7 Seconds (9.4-12.1) H 07/07/17 16:13 - Impressions Impressions Chest CTA 07/08/17 14:24 IMPRESSION: Mild aspiration bronchiolitis. No pulmonary embolus. D/ / Stephane Muller MD / Stephane Muller MD Interpreting Provider: Stephane Muller MD Echocardiogram 07/08/17 19:26 Impressions: LVEF 60%. Indeterminate diastolic function. Normal right ventricular structure and function. Mild mitral regurgitation. Mild tricuspid regurgitation. No pulmonary hypertension. Left Ventricular Wall Motion: Rest Echo Findings All wall segments showed normal motion. Findings: Study Quality * Technically challenging due to body habitus. ECG Findings * Atrial fibrillation. Left Ventricle * LVEF 60%. * Normal LV size. * LV wall thickness measurements are not well obtained. * Indeterminate diastolic function. Right Ventricle * Normal right ventricular structure and function. Left Atrium * Normal left atrial size. Right Atrium * Normal right atrial size. Aortic Valve * No aortic regurgitation. * Trileaflet aortic valve. * No aortic stenosis. Mitral Valve * Normal mitral valve structure. * No mitral stenosis. * Mild mitral regurgitation. Tricuspid Valve * Tricuspid valve not well visualized. * Mild tricuspid regurgitation. * Estimated RA pressure is 3 mmHg. * Estimated RVSP is 24 mmHg. * No pulmonary hypertension. Pulmonic Valve * Pulmonic valve is not well visualized. * No pulmonic stenosis. * No pulmonic regurgitation. Pulmonary Artery * Pulmonary artery not well visualized. Aorta * Normally sized aortic root. * Ascending aorta is not well obtained. Pericardium * There is no pericardial effusion present. Interatrial Septum * No evidence of PFO by color Doppler. IVC * Normal IVC dimensions and inspiratory collapse. Chest X-Ray 07/08/17 19:46 IMPRESSION: No acute findings. D/ / Terri Bravo MD / Terri Bravo MD Interpreting Provider: Terri Bravo MD Consult Discharge Plan - Plan Referrals: Shannan Meza, [employer] [Primary Care Provider] - Prescriptions: Rivaroxaban [Xarelto] 20 mg PO DAILY #30 tablet <Manoj Bah - Last Filed: 07/09/17 18:03> Date of Encounter: 07/09/17 - Assessment and plan (1) Atrial fibrillation Current Visit: Yes Status: Acute Qualifiers: Atrial fibrillation type: persistent Qualified Code(s): I48.1 - Persistent atrial fibrillation (2) Influenza A Current Visit: Yes Status: Acute (3) Chest tightness or pressure Current Visit: Yes Status: Resolved (4) Pre-syncope Current Visit: Yes Status: Resolved (5) Acute kidney injury Current Visit: Yes Status: Resolved (6) Medical non-compliance Current Visit: Yes Status: Chronic - Constitutional Vitals: Temp Pulse Resp BP Pulse Ox 98.5 F 93 16 133/86 93 07/09/17 15:45 07/09/17 15:45 07/09/17 15:45 07/09/17 15:45 07/09/17 15:45 Internal Medicine: Result - Labs CBC & Chem 7: 07/09/17 04:02 07/09/17 04:02 Labs: Short CBC 07/09/17 Range/Units 04:02 WBC 12.0 H D (4.3-11.1) K/mcL Hgb 13.1 (12.9-16.9) g/dL Hct 39.1 (37.5-50.1) % Plt Count 215 (140-400) K/mcL Neutrophils # 7.4 (1.6-8.9) K/mcL BMP 07/09/17 04:02 Sodium 140 Potassium 3.6 Chloride 111 H Carbon Dioxide 23 BUN 16 Creatinine 1.18 Glucose 102 Calcium 8.3 L Liver Function 07/09/17 Range/Units 04:02 Total Bilirubin 0.9 (0.3-1.0) mg/dL AST 18 (13-39) Units/L ALT 26 (7-52) Units/L Alkaline Phosphatase 87 (34-104) Units/L Albumin 3.4 L (3.5-5.7) g/dL - ABG Interpretation ABG results: PT/INR, D-dimer PT 12.7 Seconds (9.4-12.1) H 07/07/17 16:13 - Impressions Impressions Chest X-Ray 07/08/17 19:46 IMPRESSION: No acute findings. D/ / Terri Bravo MD / Terri Bravo MD Interpreting Provider: Terri Bravo MD - Attending Attestation I examined this patient and my medical decision-making was reviewed with the Resident Physician on 07/09/17. I agree with the documented findings, disposition and treatment plan as described except to the extent set forth below. Mr Jeong is currently admitted for rapid a fib and influenza. He remains moderate to high risk due to potential for worsening cardiac status. Mr Jeong continues to have flushing and puffiness - has improved after stopping Cardizem. Now on beta cj. No fever now. Still coughing. Has some swelling at IV site. Exam Alert. Comfortable Mucus membranes dry Heart irreg Some rhonchi heard Indurated area L antecubital No edema I/P 1. Rapid a fib 2. Influenza Further diagnoses and plan as above.
--- NOTE | 2017-07-09 10:43 | Cardiology Progress Note ---
Addendum entered and electronically signed by Estefany Ac MD 07/09/17 15 :13: Patient's heart rate better controlled, improved clinically. Will proceed with exercise stress testing tomorrow. NPO at midnight. Hold BB tomorrow morning before test. Original Note: <Estefany Ac - Last Filed: 07/09/17 15:03> Date of Encounter: 07/09/17 Time of Encounter: 10:41 Assessment and Plan (1) Atrial fibrillation with RVR Current Visit: Yes Status: Acute Patient with lightheadeness, near syncope, and dyspnea during exertion. ECG on a fib with RVR. -Initally given fluid bolus with cardizem drip initiated. -Patient receiving lovenox for anticoagulation. 07/08/2017--Echocardiogram on 07/08/2017 LVEF 60%, indeterminate diastolic function, normal RV structure and function, mild mitral regurg, mild tricuspid regurg, no pulmonary HTN. -Lipid panel HDL 20. Recommend lifestyle changes and dietary modifications. -Thyroid function normal, no history of uncontrolled HTN. -Per patient and patient's daughter at bedside, patient with history of snoring. Recommend sleep study as an outpatient. -Patient with history of minimal alcohol consumption as corroborated by daughter. -More PMHx has evolved to include history of non-compliance with warfarin for a fib 8 years ago, as well as difficulty with rate control resulting in use of sotalol. -CTA 07/08 negative for PE; Respiratory infection panel POSITIVE for Influenza type A. 07/09/2017-Nuclear exercise stress testing today cancelled as patient's HR still labile. -After discontinuation of cardizem, patient's facial flushing resolved. Patient reported feeling improved with more energy. We will start lopressor 12.5 mg PO BID for rate control. (2) Pre-syncope Current Visit: Yes Status: Resolved Likely related to fluid status prior to admission as patient reports 1 week history of decreased PO in the setting of suspected flu. -Creatinine improving from 1.39 on admission to 1.07 yesterday with mild bump today to 1.18. -Will continue to monitor clinically for improvement of symptoms with fluid resuscitation. (3) Influenza A Current Visit: Yes Status: Acute Management per primary team. -Tamiflu Discussion w patient/family: The assessment and plan as outlined above was discussed with the patient and/or family members who expressed understanding and agreement. All questions were answered. Thank you for involving us in the care of your patient. Please call with any questions. Subjective Principal diagnosis: Afib with RVR Interval history: Mr. Jeong is a 57 year old male with PMHx of atrial fibrillation. Patient presented to [facility] on 07/07/2017 after a one week history of feeling ill which included chills, upper respiratory symptoms, and diarrhea. Patient had episode of flushing with erythema of his face, periobital edema, and shortness of breath which he described as feeling like he was floating in fluid yesterday evening. He received a dose of lasix which resolved his symptoms. Patient was also give some benadryl yesterday for what was thought could be an allergic reaction. Flu positive. Patient states his chest discomfort has resolved. He says he feels better this morning. Denies SOB, chest pain or pressure, palpitations. Objective General: Conversant, No Apparent Distress HEENT: Atraumatic, Mucus Membranes Moist Cardiac: Reg Rate and Rhythm, Normal S1 and S2, No Murmur Lungs: Other (rhoncorous breath sounds bilaterally) Neuro: Alert and responsive, No focal deficits noted Extremities: No Clubbing, No Cyanosis, No Edema Results 07/09/17 04:02 07/09/17 04:02 Lab Results 07/09/17 07/09/17 04:02 04:02 WBC 12.0 H D Hgb 13.1 Hct 39.1 Plt Count 215 Sodium 140 Potassium 3.6 Chloride 111 H Carbon Dioxide 23 BUN 16 Creatinine 1.18 Glucose 102 Calcium 8.3 L Total Bilirubin 0.9 AST 18 ALT 26 Alkaline Phosphatase 87 Consult Discharge Plan - Plan Referrals: Shannan Meza, [employer] EXECUTIVE DIRECTOR [Primary Care Provider] - Prescriptions: Rivaroxaban [Xarelto] 20 mg PO DAILY #30 tablet <Luis Alberto Otoole - Last Filed: 07/09/17 20:13> Date of Encounter: 07/09/17 Time of Encounter: 20:00 Assessment and Plan Discussion w patient/family: The assessment and plan as outlined above was discussed with the patient and/or family members who expressed understanding and agreement. All questions were answered. Thank you for involving us in the care of your patient. Please call with any questions. Results 07/09/17 04:02 07/09/17 04:02 Lab Results 07/09/17 07/09/17 04:02 04:02 WBC 12.0 H D Hgb 13.1 Hct 39.1 Plt Count 215 Sodium 140 Potassium 3.6 Chloride 111 H Carbon Dioxide 23 BUN 16 Creatinine 1.18 Glucose 102 Calcium 8.3 L Total Bilirubin 0.9 AST 18 ALT 26 Alkaline Phosphatase 87 - Attending Attestation I examined this patient and my medical decision-making was reviewed with the Resident Physician. I agree with the documented findings, disposition and treatment plan as described except to the extent set forth below. CC: shortness of breath Pt reports is breathing easier. He had episodes of flushing last pm, feeling of fullness, lasted several hours, improved with benedryl. He is more comfortable this am, but still feel his head is warmer than the rest of his body , He reports heart racing and skipping has resolved. He notes shortness of breath has resolved. PE: reviewed, agree with above, with addition of left forearm reddened, tender to palpation at IV site IMP; 1. A fib with controlled ventricular response, on diltiazem IV, however has potential allergic reaction to diltiazem, will DC, monitor heart rate response, and flushing sensation. Will DC diltiazem, begin low dose metoprolol for heartrate control, 2. Pre syncope, appears due to dehydration, resolved with fluid bolus 3. Phlebitis at IV site left forearm, change IV site, blood cultures x 1, monitor, may need antibiotic coverage.
[2017-07-09] MEDS ORDERED: Ketorolac 30 MG/ML VIAL IVP ONE (12:41)
[2017-07-09] MEDS ORDERED: *HR* Metoprolol 5 MG/5 ML VIAL IVP ONE (18:34)
[2017-07-09] MEDS: *HR* Metoprolol 5 MG/5 ML VIAL IVP PRN (22:17)
[2017-07-09] MEDS: Melatonin 3 MG TABLET PO PRN (22:21)
[2017-07-10] MEDS: *HR* Metoprolol 5 MG/5 ML VIAL IVP PRN ×2 (04:25→10:12)
[2017-07-10] MEDS ORDERED: *HR* Metoprolol 5 MG/5 ML VIAL IVP ONE ×3 (05:58→10:00)
[2017-07-10] MEDS: *HR* Enoxaparin 100 MG/ML SYRINGE SQ SCH (06:13)
[2017-07-10] MEDS: Aspirin 81 MG TAB.CHEW PO SCH (08:04)
[2017-07-10] MEDS ORDERED: Azithromycin 250 MG TABLET PO SCH (09:00)
[2017-07-10 09:03] LABS: Basophils # 0.1 K/mcL (0.0-0.2); Basophils % 0.9 %; Eosinophils # 0.2 K/mcL (0.0-0.6); Eosinophils % 1.2 %; Hematocrit 40.9 % (37.5-50.1); Hemoglobin 13.7 g/dL (12.9-16.9); Immature Granulocytes % 3.1 % (0-4); Lymphocytes # 2.7 K/mcL (0.6-4.6); Mean Corpuscular HGB Conc 33.5 g/dL (31.6-35.5); Mean Corpuscular Hemoglobin 28.3 pg (28.0-33.3); Mean Corpuscular Volume 84.5 fL (83.0-100.0); Mean Platelet Volume 10.4 fL (9.4-12.4); Monocytes # 1.3 K/mcL (0.0-1.3); Monocytes % 9.9 %; Neutrophils # 8.3 K/mcL (1.6-8.9); Nucleated Red Blood Cells 0.2 /100 WBC (0); Platelet Count 268 K/mcL (140-400); Red Blood Count 4.84 M/mcL (4.19-5.50); Red Cell Distribution Width 17.2 % (11.5-14.5); Segmented Neutrophils % 63.9 %
[2017-07-10 09:25] LABS: Alanine Aminotransferase 37 Units/L (7-52); Albumin 3.2 g/dL (3.5-5.7); Albumin/Globulin Ratio 1.2 (1.1-2.2); Alkaline Phosphatase 97 Units/L (34-104); Aspartate Amino Transferase 30 Units/L (13-39); BUN/Creatinine Ratio 16 (6-26); Bilirubin,Total 1.2 mg/dL (0.3-1.0); Blood Urea Nitrogen 19 mg/dL (6-20); Calcium 8.3 mg/dL (8.6-10.3); Carbon Dioxide 24 mEq/L (23-29); Chloride 108 mEq/L (98-107); Globulin 2.7 g/dL (2.4-3.5); Glucose 99 mg/dL (70-105); Osmolality,Calculated 284 (280-300); Sodium 136 mEq/L (136-145); Total Protein 5.9 g/dL (6.4-8.9); eGFR For African Americans > 60 (> 60); eGFR For Non-African Americans > 60 (> 60)
[2017-07-10] MEDS ORDERED: 0.9 % Sodium Chloride 250 ML IVC ONE ×2 (09:46→12:51)
--- NOTE | 2017-07-10 11:25 | Internal Med Progress Note ---
Date of Encounter: 07/10/17 Time of Encounter: 11:23 - Assessment and plan (1) Atrial fibrillation with RVR Current Visit: Yes Status: Acute (2) Acute kidney injury Current Visit: Yes Status: Resolved (3) Chest tightness or pressure Current Visit: Yes Status: Resolved (4) Influenza A Current Visit: Yes Status: Acute (5) DVT prophylaxis Current Visit: Yes Status: Acute - Subjective Interval history: Mr. Jeong has been seen and evaluated at patient bedside this morning. He is alert awake interactive no acute distress. He states that he continues to feel that he has puffiness in his face, had an episode of shortness of breath last evening when she had chest x-ray completed but feels that his respiratory status is much improved since then. The fluttering in his chest has ceased a continues to have a productive cough. No other concerns at this time, requesting to be able to sit in a chair today. - Constitutional Vitals: Temp Pulse Resp BP Pulse Ox 97.5 F L 128 15 98/88 95 07/10/17 11:18 07/10/17 11:18 07/10/17 11:18 07/10/17 11:18 07/10/17 11:18 General appearance: Present: A&O X 3 Internal Medicine: Result - Labs CBC & Chem 7: 07/10/17 08:45 07/10/17 08:45 Labs: Short CBC 07/10/17 Range/Units 08:45 WBC 13.0 H (4.3-11.1) K/mcL Hgb 13.7 (12.9-16.9) g/dL Hct 40.9 (37.5-50.1) % Plt Count 268 (140-400) K/mcL Neutrophils # 8.3 (1.6-8.9) K/mcL BMP 07/10/17 08:45 Sodium 136 Potassium 4.0 Chloride 108 H Carbon Dioxide 24 BUN 19 Creatinine 1.20 Glucose 99 Calcium 8.3 L Liver Function 07/10/17 Range/Units 08:45 Total Bilirubin 1.2 H (0.3-1.0) mg/dL AST 30 (13-39) Units/L ALT 37 (7-52) Units/L Alkaline Phosphatase 97 (34-104) Units/L Albumin 3.2 L (3.5-5.7) g/dL - ABG Interpretation ABG results: PT/INR, D-dimer PT 12.7 Seconds (9.4-12.1) H 07/07/17 16:13 Consult Discharge Plan - Plan Referrals: Shannan Meza, PURCHASING ENGINEER [Primary Care Provider] - Prescriptions: Rivaroxaban [Xarelto] 20 mg PO DAILY #30 tablet
--- NOTE | 2017-07-10 12:54 | Cardiology Progress Note ---
<Estefany Ac - Last Filed: 07/10/17 12:52> Date of Encounter: 07/10/17 Time of Encounter: 12:52 Assessment and Plan (1) Atrial fibrillation with RVR Status: Acute Patient with lightheadeness, near syncope, and dyspnea during exertion on initial presentation to the hospital on 07/07/2107 . ECG on 07/07/2017 a fib with RVR. -Initally given fluid bolus with cardizem drip initiated. -Patient receiving lovenox for anticoagulation. Echocardiogram on 07/08/2017 LVEF 60%, indeterminate diastolic function, normal RV structure and function, mild mitral regurg, mild tricuspid regurg, no pulmonary HTN. -Lipid panel HDL 20. Recommend lifestyle changes and dietary modifications. -Thyroid function normal, no history of uncontrolled HTN. -Per patient and patient's daughter at bedside, patient with history of snoring. Recommend sleep study as an outpatient. -Patient with history of minimal alcohol consumption as corroborated by daughter. -More PMHx has evolved to include history of non-compliance with warfarin for a fib 8 years ago, as well as difficulty with rate control resulting in use of sotalol. -CTA 07/08 negative for PE; Respiratory infection panel POSITIVE for Influenza type A. 07/10/2017- -Unable to perform nuclear exercise stress testing as patient's HR still labile. -Patient facial flushing resolved yesterday upon discontinuation of cardizem, likely allergic to diltiazem. -Will treat tachycardia with another dose of metoprolol and 250ml fluid bolus. -BP after fluid bolus 100/80, will start sotalol 40mg BID. Another 250ml NS fluid bolus to be given over an hour. -Per patient's request, patient would like to be transferred to [facility] to see Dr. Abiodun Abdullahi or Dejuan Tadeo. (2) Pre-syncope Status: Resolved Likely related to fluid status prior to admission as patient reports 1 week history of decreased PO in the setting of suspected flu. -Creatinine stable today at 1.20 (1.18 yesterday). -Will continue to monitor clinically for improvement of symptoms with fluid resuscitation. (3) Influenza A Status: Acute Management per primary team. -Tamiflu Discussion w patient/family: The assessment and plan as outlined above was discussed with the patient and/or family members who expressed understanding and agreement. All questions were answered. Thank you for involving us in the care of your patient. Please call with any questions. Subjective Principal diagnosis: Afib with RVR Interval history: Mr. Jeong is a 57 year old male with PMHx of atrial fibrillation. Patient presented to [facility] on 07/07/2017 after a one week history of feeling ill which included chills, upper respiratory symptoms, and diarrhea. Patient states his flushing and chest discomfort resolved completely after being taken off of cardizem. Overnight, the patient developed some tachycardia between 150-170's. He was given a prn metoprolol dose. This morning, patient states his chest discomfort has resolved. He does still feel palpitations transiently but nothing like he was overnight. Patient's daughter states she wants to proceed with transfer to [facility]. Objective Vital Signs, Last 4 Hours Temp Pulse Resp BP Pulse Ox 07/10/17 11:18 97.5 F L 128 15 98/88 95 General: Conversant, No Apparent Distress HEENT: Atraumatic, Normocephaly, Mucus Membranes Moist Cardiac: Other (Tachycardia, irregularly irregular) Lungs: Normal Breath Sounds, No Wheeze, Rales, Rhonchi Neuro: Alert and responsive, No focal deficits noted Abdomen: Soft, Non-Tender Skin: No rashes noted on visualized skin Musculoskeletal: No Chest Wall Tenderness Extremities: No Clubbing, No Cyanosis, No Edema Results 07/10/17 08:45 07/10/17 08:45 Lab Results 07/10/17 07/10/17 08:45 08:45 WBC 13.0 H Hgb 13.7 Hct 40.9 Plt Count 268 Sodium 136 Potassium 4.0 Chloride 108 H Carbon Dioxide 24 BUN 19 Creatinine 1.20 Glucose 99 Calcium 8.3 L Total Bilirubin 1.2 H AST 30 ALT 37 Alkaline Phosphatase 97 Consult Discharge Plan - Plan Instructions: Rivaroxaban (By mouth), Atrial Fibrillation (DC) Referrals: Shannan Meza, INDUSTRIAL TRUCK OPERATOR [Primary Care Provider] - Prescriptions: Rivaroxaban [Xarelto] 20 mg PO DAILY #30 tablet <Luis Alberto Otoole - Last Filed: 07/11/17 18:27> Date of Encounter: 07/10/17 Time of Encounter: 09:15 Assessment and Plan Discussion w patient/family: The assessment and plan as outlined above was discussed with the patient and/or family members who expressed understanding and agreement. All questions were answered. Thank you for involving us in the care of your patient. Please call with any questions. Results 07/10/17 08:45 07/10/17 08:45 - Attending Attestation I examined this patient and my medical decision-making was reviewed with the Resident Physician. I agree with the documented findings, disposition and treatment plan as described except to the extent set forth below. CC: palpitations, shortness of breath Pt reports had rapid heartrate, palpitations starting approximately 4 am, felt sweaty, short of breath, felt dizzy. Symptoms lasted for approximately an hour , relieved with additional dose of metoprolol tartrate 5 mg IV. He is comfortable at present, but rather anxious. PE: Reviewed above, agree IMP: 1. A fib with RVR, not well controlled with IV diltiazem, discontinued due to allergic reaction, some improvement with IV metoprolol. Will begin po sotalol, for better rate control. Long conversation with pts daughter at [facility], who is requesting transfer to the [place] [facility]. Discussed with primary care team, all in agreement to transfer pt at and his daughters request. Available if can help, but will sign off, not much to add with impending transfer.
[2017-07-10 16:24] VITALS: BP 119/97
--- NOTE | 2017-07-10 17:14 | Discharge Summary ---
<Santino Pro - Last Filed: 07/10/17 17:12> Date of Encounter: 07/10/17 Time of Encounter: 17:12 - Discharge Diagnosis (1) Atrial fibrillation with RVR Priority: Primary Status: Acute (2) Acute kidney injury Priority: Primary Status: Resolved (3) Chest tightness or pressure Priority: Primary Status: Resolved (4) Influenza A Priority: Primary Status: Acute (5) DVT prophylaxis Priority: Secondary Status: Acute - Discharge Medications Prescriptions: Rivaroxaban [Xarelto] 20 mg PO DAILY #30 tablet Home Medications: Rivaroxaban [Xarelto] 20 mg PO DAILY #30 tablet 07/08/17 [Rx] Allergies/Adverse Reactions: 3 Allergy/AdvReac Type Severity Reaction Status Date / Time diltiazem [From Cardizem] Allergy Swelling Verified 07/10/17 09:06 of the Eye Procedures/tests Complete & Pending: Procedures Performed prior 72 hours Category Date Time Status CTA chest [CT angio chest] [CT] Stat Cat Scan 07/08/17 14:24 Completed EKG [ECG 12 lead ECG] [ECG] AM 0600 Y 07/11/17 06:00 Ordered EKG [ECG 12 lead ECG] [ECG] AM 0600 Y 07/12/17 06:00 Ordered EKG [ECG 12 lead ECG] [ECG] Stat Y 07/08/17 11:17 Completed EV echocardiogram Routine Y 07/08/17 19:26 Completed Date of admission: 07/07/17 19:22 Primary care physician: Shannan Meza CNP Consults: 07/07/17 19:47 Consult to Cardiology [CONS] Routine Comment: Consulting Provider: Cardiology Meri Reason for Consult: afib RVR Time Notified: 19:47 Call Completed: No 07/09/17 11:55 Consult to Invasive Line Access Team [CONS] Routine Reason for Consult: poor access Line Type: EPIV Discharging clinician: Santino Pro Anticipated date of discharge: 07/10/17 - Patient Status Disposition: Transfer Intermediate Care Fac Condition: Fair Functional capacity at discharge: independent ambulation Overall status at discharge: patient is not back to baseline - Discharge Instructions Instructions: Rivaroxaban (By mouth), Atrial Fibrillation (DC) Follow Up With: Shannan Meza CNP [Primary Care Provider] - Interval History: Mr. Jeong 57 yo Male with previous hx of Atrial fibrillation previously on Sotalol was admitted with atrial fibrillation RVR not on anticoagulation or rate control. He states that he last was taking any medications was 8 years ago. He was admitted to the general medical floor and placed on Cardizem drip which he did not tolerate with facial swelling, diaphoresis and uticaria and was taken of the drip and given benadryl with full resolution of his symptoms. Cardiology was consulted. He remained inpatient and placed given Metoprolol IV with minimal control of his atrial fibrillation. He also complained of shortness of breath and swabbed positive for influenza A and a chest CTA demonstrated bronchitis for which he was started on Azithromycin PO. He was not responding well to rate control and was started on Sotalol (07/10/2017) by cardiology. He and his family requested transfer to [facility] on 07/10/2017. [facility] was contacted and spoke with the admitting physician who accepted Mr. Jeong. Hospital course: Mr. Jeong is a 57 year old male - Time Spent with Patient Total time spent providing and/or coordinating discharge services: - Constitutional Vitals: Temp Pulse Resp BP Pulse Ox 97.5 F L 127 15 119/97 96 07/10/17 16:00 07/10/17 16:00 07/10/17 16:00 07/10/17 16:00 07/10/17 16:00 General appearance: Present: A&O X 3 - Head Head exam: Present: atraumatic, normocephalic - Eye Eye exam: Present: PERRL, conjuntiva pink, sclera anicteric Pupils: Present: PERRL - Neck Neck exam general surgery: Present: supple, trachea midline. Absent: lymphadenopathy - Respiratory Respiratory exam: Present: CTAB. Absent: accessory muscle use, rales, rhonchi, wheezes - Cardiovascular Cardiovascular exam: Present: irregular rhythm. Absent: diastolic murmur, gallop, systolic murmur - GI/Abdominal GI/Abdominal exam: Present: normal bowel sounds, soft, no peritoneal signs. Absent: distended, tenderness - Extremities Exam Extremities exam: Present: warm, radial pulses palpable and symmetrical. Absent : calf tenderness, cyanotic, pedal edema - Neurological Exam Neurological exam: Present: CN II-XII intact, oriented X3, no focal deficits. Absent: pronater drift, facial droop, speech deficit - Skin Skin exam: Present: dry, intact <Manoj Bah - Last Filed: 07/10/17 18:54> Date of Encounter: 07/10/17 - Discharge Diagnosis (1) Atrial fibrillation Priority: Primary Status: Acute Qualifiers: Atrial fibrillation type: persistent Qualified Code(s): I48.1 - Persistent atrial fibrillation (2) Influenza A Priority: Primary Status: Acute (3) Chest tightness or pressure Status: Resolved (4) Pre-syncope Priority: Secondary Status: Resolved (5) Acute kidney injury Status: Resolved (6) Medical non-compliance Priority: Secondary Status: Chronic Procedures/tests Complete & Pending: Procedures Performed prior 72 hours Category Date Time Status CTA chest [CT angio chest] [CT] Stat Cat Scan 07/08/17 14:24 Completed EKG [ECG 12 lead ECG] [ECG] AM 0600 Y 07/11/17 06:00 Ordered EKG [ECG 12 lead ECG] [ECG] AM 0600 Y 07/12/17 06:00 Ordered EKG [ECG 12 lead ECG] [ECG] Stat Y 07/08/17 11:17 Completed EV echocardiogram Routine Y 07/08/17 19:26 Completed Date of admission: 07/07/17 19:22 Primary care physician: Shannan Meza CNP Consults: 07/07/17 19:47 Consult to Cardiology [CONS] Routine Comment: Consulting Provider: Tripp Jerez Reason for Consult: afib RVR Time Notified: 19:47 Call Completed: No 07/09/17 11:55 Consult to Invasive Line Access Team [CONS] Routine Reason for Consult: poor access Line Type: EPIV Hospital course: Mr. Jeong is a 57 year old male - Time Spent with Patient Total time spent providing and/or coordinating discharge services: - Constitutional Vitals: Temp Pulse Resp BP Pulse Ox 97.5 F L 127 15 119/97 96 07/10/17 16:00 07/10/17 16:00 07/10/17 16:00 07/10/17 16:00 07/10/17 16:00 - Attending Attestation I examined this patient and my medical decision-making was reviewed with the Resident Physician on 07/10/17. I agree with the documented findings, disposition and treatment plan as described except to the extent set forth below. Mr Jeong has been admitted for rapid a fib. He is still tachycardic despite med changes and after cardizem stopped (allergy). He is to be transferred to [facility] per family request for transfer to [place]. Exam alert. Comfortable Mucus membranes dry Heart irreg and tachy Lungs clear Plan D/C to [facility].
== END 2017-07-10 20:55 | DRG 309 ==
LOC: 2NENU 15:35 → EMEROO 15:35 → 2NENU 18:05
PROVIDERS: ADMIT Nurse Practitioner Acute Care; ATTEND Internal Medicine

== ENCOUNTER 2019-08-24 12:01 | Observation (INO) ==
[2019-08-24 13:52] LABS: Basophils % 0.4 %; Eosinophils # 0.1 K/mcL (0.0-0.6); Eosinophils % 0.6 %; Hemoglobin 12.5 g/dL (12.9-16.9); Immature Granulocytes % 0.7 % (0-4); Lymphocytes # 1.3 K/mcL (0.6-4.6); Lymphocytes % 15.2 %; Mean Corpuscular HGB Conc 33.8 g/dL (31.6-35.5); Mean Corpuscular Hemoglobin 28.5 pg (28.0-33.3); Mean Corpuscular Volume 84.5 fL (83.0-100.0); Mean Platelet Volume 10.6 fL (9.4-12.4); Monocytes % 12.5 %; Neutrophils # 5.9 K/mcL (1.6-8.9); Platelet Count 206 K/mcL (140-400); Red Blood Count 4.38 M/mcL (4.19-5.50); Red Cell Distribution Width 15.9 % (11.5-14.5); Segmented Neutrophils % 70.6 %; White Blood Count 8.4 K/mcL (4.3-11.1)
[2019-08-24 14:02] LABS: INR 1.2; Prothrombin Time 13.7 Seconds (9.4-12.1)
[2019-08-24 14:28] LABS: BUN/Creatinine Ratio 12 (6-26); Blood Urea Nitrogen 13 mg/dL (6-20); Carbon Dioxide 24 mEq/L (23-29); Chloride 105 mEq/L (98-107); Glucose 104 mg/dL (70-105); Osmolality,Calculated 282 (280-300); Potassium 3.9 mEq/L (3.5-5.1); Sodium 136 mEq/L (136-145); eGFR For African Americans > 60 (> 60); eGFR For Non-African Americans > 60 (> 60)
[2019-08-24] MEDS ORDERED: Lidocaine/EPI 1:200k 1% PF 10 ML VIAL INFILT ONE (17:13)
[2019-08-24] MEDS ORDERED: Isovue-370 500 ML BOTTLE IVP ONE (17:46)
[2019-08-24] MEDS ORDERED: *HR* HYDROcodone/Acet 5/325 mg TABLET PO ONE (17:52)
[2019-08-24] MEDS ORDERED: Vancomycin 1,750 MG in 0.9 % Sodium Chloride 250 ML IVPB SCH (19:00)
[2019-08-24 20:20] LABS: C-Reactive Protein 25 mg/L (Less than 10)
[2019-08-24] MEDS: cefTRIAXone 2,000 MG in Water for inj. (sterile) 20 ML IVP SCH (20:48)
[2019-08-24] MEDS: Apixaban 5 MG TABLET PO SCH (20:59)
[2019-08-24] MEDS ORDERED: *HR* OxyCODONE Immed Rel 5 MG TABLET PO ONE (21:04)
[2019-08-25] MEDS ORDERED: *HR* OxyCODONE Immed Rel 5 MG TABLET PO ONE ×2 (04:58→11:43)
[2019-08-25] MEDS: Apixaban 5 MG TABLET PO SCH ×2 (08:25→20:49)
[2019-08-25 09:57] LABS: Basophils # 0.1 K/mcL (0.0-0.2); Basophils % 0.4 %; Eosinophils # 0.1 K/mcL (0.0-0.6); Eosinophils % 0.5 %; Hematocrit 38.9 % (37.5-50.1); Hemoglobin 12.9 g/dL (12.9-16.9); Immature Granulocytes % 0.8 % (0-4); Lymphocytes # 1.6 K/mcL (0.6-4.6); Lymphocytes % 13.7 %; Mean Corpuscular HGB Conc 33.2 g/dL (31.6-35.5); Mean Corpuscular Hemoglobin 28.2 pg (28.0-33.3); Mean Corpuscular Volume 85.1 fL (83.0-100.0); Mean Platelet Volume 10.4 fL (9.4-12.4); Monocytes # 1.6 K/mcL (0.0-1.3); Monocytes % 13.8 %; Neutrophils # 8.2 K/mcL (1.6-8.9); Platelet Count 257 K/mcL (140-400); Red Blood Count 4.57 M/mcL (4.19-5.50); Segmented Neutrophils % 70.8 %; White Blood Count 11.6 K/mcL (4.3-11.1)
[2019-08-25 10:00] LABS: Alanine Aminotransferase 13 Units/L (7-52); Albumin 3.7 g/dL (3.5-5.7); Albumin/Globulin Ratio 1.3 (1.1-2.2); Alkaline Phosphatase 78 Units/L (34-104); Aspartate Amino Transferase 11 Units/L (13-39); BUN/Creatinine Ratio 15 (6-26); Bilirubin,Total 1.6 mg/dL (0.3-1.0); Blood Urea Nitrogen 15 mg/dL (6-20); Carbon Dioxide 24 mEq/L (23-29); Chloride 105 mEq/L (98-107); Globulin 2.9 g/dL (2.4-3.5); Glucose 105 mg/dL (70-105); Osmolality,Calculated 281 (280-300); Potassium 4.1 mEq/L (3.5-5.1); Sodium 135 mEq/L (136-145); Total Protein 6.6 g/dL (6.4-8.9); eGFR For African Americans > 60 (> 60); eGFR For Non-African Americans > 60 (> 60)
[2019-08-25] MEDS: cefTRIAXone 2,000 MG in Water for inj. (sterile) 20 ML IVP SCH (16:26)
[2019-08-25] MEDS ORDERED: *HR* OxyCODONE Immed Rel 5 MG TABLET PO PRN (16:56)
[2019-08-25 17:12] LABS: Source,Synovial Fluid R knee
[2019-08-25] MEDS ORDERED: Piperacillin/Tazobactam 3.375 GM in 0.9 % Sodium Chloride Mini Bag 100 ML IVPB SCH (17:49)
[2019-08-25 18:01] LABS: Appearance,Synovial Fluid Hazy (Clear-Hazy); Color,Synovial Fluid Straw (Straw)
[2019-08-25 18:23] LABS: Glucose,Synovial Fluid 69 mg/dL (No Ref Range); LDH,Synovial Fluid > 1200 Units/L (No Ref Range)
[2019-08-25] MEDS: *HR* OxyCODONE Immed Rel 5 MG TABLET PO PRN (20:48)
[2019-08-25] MEDS ORDERED: *HR* LORazepam 2 MG/ML VIAL IVP ONE (21:08)
[2019-08-26 04:00] LABS: Basophils # 0.1 K/mcL (0.0-0.2); Basophils % 0.5 %; Eosinophils # 0.1 K/mcL (0.0-0.6); Eosinophils % 0.7 %; Hematocrit 37.5 % (37.5-50.1); Hemoglobin 12.7 g/dL (12.9-16.9); Immature Granulocytes % 0.6 % (0-4); Lymphocytes # 1.6 K/mcL (0.6-4.6); Mean Corpuscular HGB Conc 33.9 g/dL (31.6-35.5); Mean Corpuscular Hemoglobin 28.3 pg (28.0-33.3); Mean Corpuscular Volume 83.5 fL (83.0-100.0); Mean Platelet Volume 10.3 fL (9.4-12.4); Monocytes # 1.4 K/mcL (0.0-1.3); Monocytes % 13.2 %; Neutrophils # 7.4 K/mcL (1.6-8.9); Platelet Count 237 K/mcL (140-400); Red Blood Count 4.49 M/mcL (4.19-5.50); Red Cell Distribution Width 15.8 % (11.5-14.5); White Blood Count 10.5 K/mcL (4.3-11.1)
[2019-08-26 04:17] LABS: BUN/Creatinine Ratio 17 (6-26); Blood Urea Nitrogen 18 mg/dL (6-20); Calcium 8.7 mg/dL (8.6-10.3); Carbon Dioxide 23 mEq/L (23-29); Chloride 108 mEq/L (98-107); Glucose 109 mg/dL (70-105); Osmolality,Calculated 278 (280-300); Sodium 133 mEq/L (136-145); eGFR For African Americans > 60 (> 60); eGFR For Non-African Americans > 60 (> 60)
[2019-08-26] MEDS: Apixaban 5 MG TABLET PO SCH ×2 (08:40→20:52)
[2019-08-26] MEDS: *HR* OxyCODONE Immed Rel 5 MG TABLET PO PRN (08:44)
[2019-08-26] MEDS ORDERED: Ketorolac 15 MG/ML VIAL IVP ONE (14:25)
[2019-08-26 14:43] LABS: Creatine Kinase 35 Units/L (30-223); Troponin I < 0.03 ng/mL (< 0.04)
[2019-08-26 16:31] LABS: Uric Acid 8.6 mg/dL (2.3-7.6)
[2019-08-26] MEDS ORDERED: Ketorolac 15 MG/ML VIAL IVP SCH (18:00)
[2019-08-26] MEDS: cefTRIAXone 2,000 MG in Water for inj. (sterile) 20 ML IVP SCH (18:03)
[2019-08-26] MEDS: Ketorolac 15 MG/ML VIAL IVP PRN (20:59)
[2019-08-27] MEDS: Ketorolac 15 MG/ML VIAL IVP PRN (05:49)
[2019-08-27 06:32] LABS: Basophils % 0.5 %; Eosinophils # 0.1 K/mcL (0.0-0.6); Eosinophils % 1.7 %; Hematocrit 33.1 % (37.5-50.1); Hemoglobin 11.3 g/dL (12.9-16.9); Immature Granulocytes % 0.5 % (0-4); Lymphocytes # 1.3 K/mcL (0.6-4.6); Lymphocytes % 15.5 %; Mean Corpuscular HGB Conc 34.1 g/dL (31.6-35.5); Mean Corpuscular Hemoglobin 28.8 pg (28.0-33.3); Mean Corpuscular Volume 84.2 fL (83.0-100.0); Mean Platelet Volume 10.5 fL (9.4-12.4); Monocytes # 0.9 K/mcL (0.0-1.3); Monocytes % 10.4 %; Neutrophils # 5.8 K/mcL (1.6-8.9); Platelet Count 216 K/mcL (140-400); Red Blood Count 3.93 M/mcL (4.19-5.50); Red Cell Distribution Width 15.6 % (11.5-14.5); Segmented Neutrophils % 71.4 %; White Blood Count 8.2 K/mcL (4.3-11.1)
[2019-08-27 06:42] LABS: BUN/Creatinine Ratio 23 (6-26); Blood Urea Nitrogen 25 mg/dL (6-20); Calcium 8.3 mg/dL (8.6-10.3); Carbon Dioxide 23 mEq/L (23-29); Chloride 107 mEq/L (98-107); Glucose 166 mg/dL (70-105); Osmolality,Calculated 290 (280-300); Potassium 3.6 mEq/L (3.5-5.1); Sodium 136 mEq/L (136-145); eGFR For African Americans > 60 (> 60); eGFR For Non-African Americans > 60 (> 60)
[2019-08-27] MEDS ORDERED: predniSONE 20 MG TABLET PO ONE (07:29)
[2019-08-27] MEDS: Apixaban 5 MG TABLET PO SCH (08:36)
[2019-08-27 09:19] LABS: C-Reactive Protein 78 mg/L (Less than 10)
[2019-08-27 10:10] VITALS: BP 131/81
[2019-08-27] MEDS ORDERED: Aminoglycoside Consult 1 EACH MC ONE (15:32)
== END 2019-08-27 15:33 ==
LOC: 3ANU 12:01 → EMEROOARM 12:01 → SUATTDRO 16:10 → 3ANU 19:30
PROVIDERS: ADMIT Internal Medicine; ATTEND Student in an Organized Health Care Education/Training Program

== ENCOUNTER 2020-07-20 10:23 | Observation (INO) ==
[2020-07-20] MEDS ORDERED: 0.9 % Sodium Chloride 1,000 ML IVC ONE ×2 (10:32→12:58)
[2020-07-20] MEDS ORDERED: *HR* Metoprolol 5 MG/5 ML VIAL IVP ONE ×2 (10:34→11:01)
[2020-07-20 11:06] LABS: INR 1.4
[2020-07-20 11:09] LABS: Basophils # 0.1 K/mcL (0.0-0.2); Basophils % 0.5 %; Eosinophils # 0.2 K/mcL (0.0-0.6); Eosinophils % 1.8 %; Hematocrit 43.9 % (37.5-50.1); Hemoglobin 14.3 g/dL (12.9-16.9); Immature Granulocytes % 0.6 % (0-4); Lymphocytes # 2.2 K/mcL (0.6-4.6); Lymphocytes % 21.6 %; Mean Corpuscular HGB Conc 32.6 g/dL (31.6-35.5); Mean Corpuscular Hemoglobin 29.4 pg (28.0-33.3); Mean Corpuscular Volume 90.1 fL (83.0-100.0); Mean Platelet Volume 11.9 fL (9.4-12.4); Monocytes % 9.9 %; Neutrophils # 6.7 K/mcL (1.6-8.9); Platelet Count 239 K/mcL (140-400); Red Blood Count 4.87 M/mcL (4.19-5.50); Red Cell Distribution Width 16.6 % (11.5-14.5); Segmented Neutrophils % 65.6 %; White Blood Count 10.2 K/mcL (4.3-11.1)
[2020-07-20 11:12] LABS: BUN/Creatinine Ratio 17 (6-26); Blood Urea Nitrogen 23 mg/dL (6-20); Calcium 8.9 mg/dL (8.6-10.3); Carbon Dioxide 24 mEq/L (23-29); Chloride 113 mEq/L (98-107); Glucose 84 mg/dL (70-105); Magnesium 2.1 mg/dL (1.6-2.6); Osmolality,Calculated 297 (280-300); Potassium 4.1 mEq/L (3.5-5.1); Sodium 142 mEq/L (136-145); Troponin I < 0.03 ng/mL (< 0.04); eGFR For African Americans > 60 (> 60); eGFR For Non-African Americans 53 (> 60)
[2020-07-20] MEDS ORDERED: *HR* Metoprolol 5 MG/5 ML VIAL IVP PRN (16:44)
[2020-07-20] MEDS ORDERED: Acetaminophen 325 MG TABLET PO PRN (16:58)
[2020-07-20] MEDS ORDERED: Naloxone 0.4 MG/ML INJ IVP PRN (16:58)
[2020-07-20] MEDS: Apixaban 5 MG TABLET PO SCH (19:57)
[2020-07-21] MEDS ORDERED: 0.9 % Sodium Chloride 1,000 ML IVC ONE (01:20)
[2020-07-21] MEDS: Apixaban 5 MG TABLET PO SCH (07:16)
[2020-07-21 08:32] LABS: BUN/Creatinine Ratio 16 (6-26); Blood Urea Nitrogen 20 mg/dL (6-20); Calcium 8.4 mg/dL (8.6-10.3); Carbon Dioxide 23 mEq/L (23-29); Chloride 115 mEq/L (98-107); Glucose 89 mg/dL (70-105); Osmolality,Calculated 296 (280-300); Potassium 4.3 mEq/L (3.5-5.1); Sodium 142 mEq/L (136-145); eGFR For African Americans > 60 (> 60); eGFR For Non-African Americans 58 (> 60)
[2020-07-21 15:25] VITALS: BP 125/81
== END 2020-07-21 15:57 | disposition short-term general hospital (02) ==
LOC: 2ANU 10:23 → EMEROOARM 10:23 → 2ANU 07-21 08:10
PROVIDERS: ADMIT Internal Medicine; ATTEND Internal Medicine